=== PATIENT | male | born 1990 | race African-American/Black ===

== ENCOUNTER 2020-12-23 20:06 | Emergency (ER) | payer SELFPAY ==
[~2020-12-23 20:06] MED LIST: Iopamidol-370 76% 500 ML 1 ML ONE
[2020-12-23 23:00] LABS: #Eosinphils 0.1 thou/uL (0.0-0.7); #Lymphocytes 1.1 thou/uL (1.20-3.40); #Monocytes 0.6 thou/uL (0.11-0.59); #Neutrophils 2.4 thou/uL (1.40-6.50); %Basophils 0.8 % (0.0-1.0); %Eosinophils 1.3 % (0.0-10.0); %Lymphocytes 26.7 % (21.0-51.0); %Monocytes 13.7 % (0.0-10.0); %Neutrophils 57.4 % (42.0-75.0); Hemoglobin 12.5 g/dL (14.0-18.0); Mean Corpuscular HGB CONC 34.8 g/dL (32.0-36.0); Mean Corpuscular Hemoglobin 27.4 pg (27.0-31.0); Mean Corpuscular Volume 78.5 fL (78.0-98.0); Mean Platelet Volume 8.5 fL (7.4-10.4); Platelet Count 153 thou/uL (130-400); RBC Distribution Width 12.1 % (11.5-14.5); Red Blood Cell (RBC) Count 4.59 mill/uL (4.70-6.10); White Blood Cell (WBC) Count 4.1 thou/uL (4.8-10.8)
[2020-12-23 23:20] LABS: ALT (SGPT) 14 U/L (8-55); AST (SGOT) 23 U/L (5-34); Alkaline Phosphatase 75 U/L (40-110); Anion Gap 14 mmol/L (10-20); BUN (Urea Nitrogen) 10 mg/dL (8.9-20.6); Bilirubin, Total 0.4 mg/dL (0.2-1.2); Calc. Creatinine Clearance 0 mL/min (70-130); Calcium 9.2 mg/dL (7.8-10.44); Carbon Dioxide 25 mmol/L (22-29); Chloride 104 mmol/L (98-107); Globulin 4.3 g/dL (2.4-3.5); Glucose 103 mg/dL (70-105); Potassium 3.7 mmol/L (3.5-5.1); Protein, Total 8.3 g/dL (6.0-8.3); Sodium 139 mmol/L (136-145)
[2020-12-23] MEDS ORDERED: Ketorolac Tromethamine 30 MG/ML VIAL ONE (23:54)
== END 2020-12-24 00:07 | disposition home or self-care (01) ==
LOC: ERS 20:06
DX: K61.1 Rectal abscess (principal); F17.210 Nicotine dependence, cigarettes, uncomplicated
CPT/HCPCS: 72193; 74177; 80053; 85025; 96374; J1885; Q9967